=== PATIENT | male | born 1955 | race Caucasian/White ===

== ENCOUNTER 2018-04-09 12:01 | Emergency (ER) | payer BC ==
[2018-04-09 12:51] LABS: #Eosinphils 0.1 thou/uL (0.0-0.7); #Lymphocytes 1.9 thou/uL (1.20-3.40); #Monocytes 0.7 thou/uL (0.11-0.59); #Neutrophils 10.5 thou/uL (1.40-6.50); %Basophils 0.3 % (0.0-1.0); %Eosinophils 0.6 % (0.0-10.0); %Lymphocytes 14.4 % (21.0-51.0); %Monocytes 5.6 % (0.0-10.0); %Neutrophils 79.1 % (42.0-75.0); Hemoglobin 14.7 g/dL (14.0-18.0); Mean Corpuscular HGB CONC 32.8 g/dL (32.0-36.0); Mean Corpuscular Hemoglobin 31.8 pg (27.0-31.0); Mean Platelet Volume 6.7 fL (7.4-10.4); Platelet Count 290 thou/uL (130-400); RBC Distribution Width 11.4 % (11.5-14.5); Red Blood Cell (RBC) Count 4.63 mill/uL (4.70-6.10); White Blood Cell (WBC) Count 13.2 thou/uL (4.8-10.8)
[2018-04-09 13:14] LABS: ALT (SGPT) 9 U/L (8-55); AST (SGOT) 12 U/L (5-34); Albumin 4.4 g/dL (3.4-4.8); Alkaline Phosphatase 61 U/L (40-150); Anion Gap 13 mmol/L (10-20); BUN (Urea Nitrogen) 18 mg/dL (8.4-25.7); Bilirubin, Total 0.4 mg/dL (0.2-1.2); CK (CPK) 43 U/L (30-200); Calc. Creatinine Clearance 0 mL/min (70-130); Calcium 9.7 mg/dL (7.8-10.44); Carbon Dioxide 25 mmol/L (23-31); Chloride 101 mmol/L (98-107); Estimated GFR-MDRD 70; Glucose 109 mg/dL (80-115); Potassium 4.7 mmol/L (3.5-5.1); Protein, Total 7.4 g/dL (5.8-8.1); Sodium 134 mmol/L (136-145)
[2018-04-09 13:16] LABS: CKMB 1.1 ng/mL (0-6.6); Troponin I Less than 0.010 ng/mL (< 0.028)
--- NOTE | 2018-04-10 09:35 | RAD ---
CHEST ONE VIEW: History: Chest pain. FINDINGS: Cardiac silhouette is magnified by projection. Pulmonary vasculature are unremarkable. Mediastinum is midline with aortic calcification and post-operative changes. No lobar consolidation or evidence of pneumothorax. manager monitoring leads overlie the chest. IMPRESSION: 1. No active cardiopulmonary abnormalities are demonstrated. 2. Atherosclerosis. POS: [facility]
== END 2018-04-09 14:51 | disposition left against medical advice (07) ==
LOC: ERS 12:01
DX: R06.02 Shortness of breath (principal); I25.2 Old myocardial infarction; I10 Essential (primary) hypertension; F17.210 Nicotine dependence, cigarettes, uncomplicated; Z79.899 Other long term (current) drug therapy; Z79.82 Long term (current) use of aspirin
CPT/HCPCS: 36415; 71045; 80053; 82553; 83880; 84484; 85025; 85379; 93005

== ENCOUNTER 2019-03-19 09:26 | Outpatient (CLI) | payer MEDICARE ==
--- NOTE | 2019-03-19 10:05 | CT ---
CT chest noncontrast low-resolution screening. HISTORY: Tobacco abuse. FINDINGS: Lungs are hyperinflated with scattered peripheral linear interstitial thickening and mild b essence formation. Multiple tiny subpleural nodules and scarring are present throughout each lung. At the left lung apex in an area of scarring, a dominant solid 0.6 cm noncalcified nodule is present. Scattered small calcified granulomata are also present, consistent with healed granulomatous disease. Lack of contrast limits evaluation of the soft tissues. No bulky adenopathy. Calcification throughout the arterial structures including the coronary arteries. IMPRESSION: Lung RADS category 3. Probably benign findings. Suggest six-month follow-up low-dose CT c hest to evaluate for stability. Dominant 6 mm nodule left lung apex. Additional smaller, predominantly subpleural nodules. Emphysema. Atherosclerosis.
== END 2019-03-19 09:27 | disposition home or self-care (01) ==
LOC: CT 09:26
PROVIDERS: ATTEND Nurse Practitioner Family
DX: F17.210 Nicotine dependence, cigarettes, uncomplicated (principal); R91.8 Other nonspecific abnormal finding of lung field
CPT/HCPCS: G0297

== ENCOUNTER 2019-09-17 08:14 | Outpatient (CLI) | payer MEDICARE ==
--- NOTE | 2019-09-17 10:22 | CT ---
LOW DOSE CT SCAN CHEST WITHOUT IV CONTRAST FOR LUNG CANCER SCREENING: HISTORY: Nicotine dependence. Current smoker of 40+ years. COMPARISON: 03/19/2019 FINDINGS: The lungs remain hyperinflated with scattered peripheral and interstitial thickening and mild bulla f ormation. Multiple tiny subpleural nodules and scarring are again seen bilaterally. The solid 6 mm, noncalcified nodule in the left lung apex is stable. A couple of new tiny nodules are seen in the left upper lobe, measuring up to 3 mm. There are vascular calcifications without evidence of aneurysmal dilatation of the thoracic aorta. No pleural or epicardial effusions are seen. IMPRESSION: Lung-RADS category 3 - probably benign findings. RECOMMENDATIONS: Six month follow-up LDCT of the chest is recommended. POS: [facility]
== END 2019-09-17 08:15 | disposition home or self-care (01) ==
LOC: CT 08:14
PROVIDERS: ATTEND Nurse Practitioner Family
DX: F17.210 Nicotine dependence, cigarettes, uncomplicated (principal); R93.89 Abnormal findings on diagnostic imaging of other specified body structures
CPT/HCPCS: G0297

== ENCOUNTER 2019-10-15 08:12 | Outpatient (CLI) | payer MEDICARE, OTHER ==
--- NOTE | 2019-10-15 08:49 | RAD ---
XR Chest Pa Lat @ POB History: Dyspnea Comparison: CT chest September 17, 2019 Findings: Lungs are clear. No pneumothorax. No effusion. Previously described left upper lobe nodule is not well seen. Cardiac silhouette and mediastinal contours are within normal limits. Impression: No acute intrathoracic abnormality.
== END 2019-10-15 08:13 | disposition home or self-care (01) ==
LOC: RAD 08:12
PROVIDERS: ATTEND Internal Medicine Critical Care Medicine
DX: R06.00 Dyspnea, unspecified (principal)
CPT/HCPCS: 71046

== ENCOUNTER 2020-06-16 09:56 | Outpatient (CLI) | payer MEDICARE, OTHER ==
--- NOTE | 2020-06-16 11:39 | CT ---
CT CHEST WITHOUT CONTRAST: INDICATION: Pulmonary nodule followup. COMPARISON: Comparison is made to CT chest 09/17/2019. FINDINGS: Lungs again show chronic parenchymal change. Mild hyperexpansion. Evidence of centrilobular emphyse matous change. Mild interstitial thickening in the periphery of both lung chavez again noted. There are scattered areas of ground-glass opacity in the periphery of all lobes. Interstitial prominence with some early honeycombing posterior pleural-based right lower lobe superiorly. On the right, there is a 5 mm nodular density right lower lobe posteriorly seen on image 80 axial whi ch is stable. More inferiorly there is a pleural-based nodular density of posterior right lower lobe image 116 julio cesar uring 7 mm which is stable. In the left lung apex, the 6 mm nodule described previously is stable. More inferiorly in the periph eral left upper lobe on image 53, a 6 mm nodule is stable. Apical pleural thickening with apical pleural nodularity is stable. Mediastinum unremarkable with no evidence of adenopathy. Degenerative spine changes appear stable. Postop sternotomy change noted. IMPRESSION: There are chronic lung changes again noted with scattered bilateral pulmonary nodules which appears s table as detailed above. POS: [facility]
== END 2020-06-16 09:57 | disposition home or self-care (01) ==
LOC: BICCT 09:56
PROVIDERS: ATTEND Internal Medicine Critical Care Medicine
DX: R91.8 Other nonspecific abnormal finding of lung field (principal)
CPT/HCPCS: 71250

== ENCOUNTER 2020-11-06 07:41 | Outpatient (CLI) | payer MEDICARE, OTHER | END 2020-11-06 07:42 | disposition home or self-care (01) | LOC: RAD-FRANK 07:41 | PROVIDERS: ATTEND Nurse Practitioner Family | DX: D72.829 Elevated white blood cell count, unspecified (principal) | CPT/HCPCS: 71046 ==